=== PATIENT | male | born 1980 | race Caucasian/White ===

== ENCOUNTER 2021-11-29 01:45 | Emergency (ER) | payer SELFPAY ==
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
[2021-11-29 02:05] VITALS: BP 136/79; PULSE 85; RESP 18; O2SAT 98
[2021-11-29 02:12] VITALS: BP 136/79; PULSE 88; RESP 18; O2SAT 98
[2021-11-29] MEDS: ACETAMINOPHEN 500 MG TABLET 1000 MG PO (02:17)
[2021-11-29] MEDS: TETANUS/DIPHTHERIA TOXOIDS ADSORB 0.5 ML VIAL (*BKC) IM (02:24)
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
[2021-11-29] MEDS: LIDOCAINE HCL 1% LOCAL INJ 20 ML VIAL 5 ML INFILTRATE (03:49)
--- NOTE | 2021-11-29 04:29 | PC.NURSE ---
Posterior elbow OCL applied per EDP. Arm sling also applied per EDP.
[2021-11-29 04:44] VITALS: BP 131/76
== END 2021-11-29 04:40 | disposition home or self-care (01) ==
PROVIDERS: Emergency Provider Emergency Medicine
DX: S01.511A Laceration without foreign body of lip, initial encounter (principal); S05.12XA Contusion of eyeball and orbital tissues, left eye, initial encounter; S52.125A Nondisplaced fracture of head of left radius, initial encounter for closed fracture; Z23 Encounter for immunization; Y04.2XXA Assault by strike against or bumped into by another person, initial encounter
CPT/HCPCS: 12011; 29105; 71101; 73070; 90471; 90714; 99284; A4565; A9270